=== PATIENT | female | born 1950 | race Caucasian/White ===

== ENCOUNTER 2022-02-24 19:54 | Inpatient (IN) | payer BC, OTHER ==
--- NOTE | 2022-02-23 23:30 | NUR ---
IV RE-INSERTION: Restarted on L. forearm 22G, good blood return. Successful after 2 attempts. Resumed current IVF of NS @ 100 per hour. Will observe for any signs of infiltration. Addendum: 02/27/22 at 0019 by Arielle Altamirano RN Disregard above notes. Incorrect date.
[~2022-02-24] VITALS: Ht 167.6 cm; Wt 78.0 kg
[2022-02-24 20:00] VITALS: BP_SYST 152
[2022-02-24 23:17] LABS: PLATELET COUNT (AUTO) 323 K/uL (130-430); RED BLOOD CELL COUNT(AUTO) 4.66 MIL/uL (4.2-6.2)
[2022-02-24 23:23] LABS: BASOPHILS % (AUTO) 0.2 % (0.0-2.0); EOSINOPHILS # (AUTO) 0.1 K/uL (0.0-0.4); EOSINOPHILS % (AUTO) 0.7 % (0.0-4.0); HEMATOCRIT 40.6 % (36-48); HEMOGLOBIN 14.6 g/dL (12.0-16.0); LYMPHOCYTES # (AUTO) 4.4 K/uL (1.0-5.5); LYMPHOCYTES % (AUTO) 38.4 % (20.5-51.5); MEAN CORPUSCULAR HEMOGLOBIN 31 pg (27-31); MEAN CORPUSCULAR HGB CONC 36 % (32-36); MEAN CORPUSCULAR VOLUME 87 fL (79.0-98.0); MONOCYTES # (AUTO) 0.8 K/uL (0.0-1.0); MONOCYTES % (AUTO) 6.6 % (1.7-9.3); NEUTROPHILS # (AUTO) 6.3 K/uL (1.8-7.7); NEUTROPHILS % (AUTO) 54.1 % (40.0-70.0); WHITE BLOOD COUNT (AUTO) 11.6 K/uL (4.8-10.8)
[2022-02-24 23:28] LABS: ANION GAP 5 (5-15); GLUCOSE 101 mg/dL (70-99); POTASSIUM 3.6 mmol/L (3.5-5.1); UREA NITROGEN, BLOOD 9 mg/dL (8-21)
--- NOTE | 2022-02-24 23:35 | NUR ---
PT TO BED 2, AMBULATES WITH STEADY GAIT. PT DENIES ANY CHEST PAIN, STATES SHE HAS BURNING AND ALSO HAS HX OF GERD. PT STATES SHE WAS TAKING STEROIDS AND HAS BEEN DIZZY. NO S/S OF DISTRESS NOTED. PT PLACED ON C-MONITOR
[2022-02-24 23:36] LABS: ALANINE AMINOTRANSFERASE 40 U/L (12-78); ALBUMIN 3.9 g/dL (3.4-4.8); ASPARTATE AMINOTRANSFERASE 32 U/L (10-37); LIPASE 133 U/L (73-393); TOTAL BILIRUBIN 0.6 mg/dL (0.0-1.0)
[2022-02-24 23:38] LABS: CHLORIDE 84 mmol/L (98-107)
[2022-02-24 23:40] LABS: SODIUM SERUM 119 mmol/L (136-145)
[2022-02-24] MEDS ORDERED: NACL 0.9% 1,000 ML IV ONE (23:45)
[2022-02-24] MEDS ORDERED: MECLIZINE HCL 25 MG TABLET (ANITVERT) PO ONE (23:45)
--- NOTE | 2022-02-25 00:50 | NUR ---
LAB AT BEDSIDE FOR 2ND TROPONIN
--- NOTE | 2022-02-25 01:19 | NUR ---
PT UP AND AMBULATES WITH STEADY GAIT TO RESTROOM.
--- NOTE | 2022-02-25 01:41 | NUR ---
NO CHANGE IN PT STATUS. PT UP AND TALKING ON PHONE. NO S/S OF DISTRESS NOTED. VSS. WILL CONTINUE TO MONITOR.
[2022-02-25] MEDS ORDERED: FEXO180T94 PO (02:35)
[2022-02-25] MEDS ORDERED: LEVO100T9 PO (02:35)
[2022-02-25] MEDS ORDERED: PRAV40TA63 PO (02:35)
[2022-02-25] MEDS ORDERED: LISI10TA29 PO (02:35)
[2022-02-25] MEDS ORDERED: NACL 0.9% 1,000 ML IV ONE (03:00)
--- NOTE | 2022-02-25 04:35 | NUR ---
PATIENT SLEEPING IN BED. WAITING FOR MS BED. VSS. WILL CONTINUE TO MONITOR.
--- NOTE | 2022-02-25 05:47 | NUR ---
PATIENT RESTING IN BED. VSS. WAITNIG FOR MS BED. WILL CONTINUE TO MONITOR.
[2022-02-25] MEDS ORDERED: LORazepam 2 MG/ML VIAL IVP PRN (06:30)
[2022-02-25] MEDS ORDERED: ONDANSETRON HCL 4 MG/2 ML VIAL IVP PRN (06:30)
[2022-02-25] MEDS: NACL 0.9% 1,000 ML IV SCH ×2 (06:37→12:30)
--- NOTE | 2022-02-25 07:17 | NUR ---
gave rprt to julio cesar
--- NOTE | 2022-02-25 07:26 | NUR ---
a/o x 4 vss appears to be in no acute distress noted at this time, xray at bedside at this time.
--- NOTE | 2022-02-25 07:51 | NUR ---
mill laborer at bedside at this time
--- NOTE | 2022-02-25 08:08 | NUR ---
Admit bed requested Patient will be admitted to care of . Admitted to MedSurg unit. Diagnosis Hyponatremia and dizziness Inpatient (Yes or No) yes Observation (Yes or No) no Orientation concerns or request close to nursing station (Yes or No) no Covid Status negative On vent or bipap no Isolation requirements no Needs a sitter no From Home (Yes or if No enter name of facility) home Requires Dialysis (Yes or No) no Med Rec Completed (Yes of No) yes
[2022-02-25] MEDS ORDERED: MECLIZINE HCL 25 MG TABLET (ANITVERT) PO SCH (09:00)
[2022-02-25] MEDS ORDERED: NON-FORMULARY MEDICATION (Fexofenadine Hcl (Allegra Allergy) 180 MG) PO SCH (09:00)
--- NOTE | 2022-02-25 09:27 | NUR ---
CONSULTATION PAGED/CALLED Reason for Consultation: [] LEUKOCYTOSIS Person Who was Notified: [] JULIETTE Consulting Physician: [] DR GAGE Market Relationship Manager Specialty: [] ID Ordering Physician: [] DR ARREOLA
--- NOTE | 2022-02-25 09:29 | NUR ---
CONSULTATION PAGED/CALLED Reason for Consultation: [] DIZZINESS Person Who was Notified: [] DR Jonny TEIXEIRA Consulting Physician: [] DR Jonny TEIXEIRA Shot Polisher And Inspector Specialty: [] NEURO Ordering Physician: [] DR ARREOLA
--- NOTE | 2022-02-25 09:32 | NUR ---
CONSULTATION PAGED/CALLED Reason for Consultation: [] DIZZINESS Person Who was Notified: [] DR LONG Consulting Physician: [] DR LONG Superintendent [employer] Specialty: [] CARDIO Ordering Physician: [] DR ARREOLA
--- NOTE | 2022-02-25 09:35 | NUR ---
CONSULTATION PAGED/CALLED Reason for Consultation: [] HYPONATREMIA Person Who was Notified: [] DR SHARMA Consulting Physician: [] DR SHARMA Lab Aid Specialty: [] NEPHRO Ordering Physician: [] DR ARREOLA
[2022-02-25 09:40] LABS: ANION GAP 8 (5-15); CALCIUM 8.2 mg/dL (8.4-11.0); CHLORIDE 97 mmol/L (98-107); CREATININE 0.69 mg/dL (0.55-1.30); GLUCOSE 95 mg/dL (70-99); SODIUM SERUM 130 mmol/L (136-145); UREA NITROGEN, BLOOD 9 mg/dL (8-21)
[2022-02-25 09:57] LABS: BASOPHILS # (AUTO) 0.3 K/uL (0.0-0.2); BASOPHILS % (AUTO) 3.2 % (0.0-2.0); EOSINOPHILS # (AUTO) 0.1 K/uL (0.0-0.4); EOSINOPHILS % (AUTO) 1.3 % (0.0-4.0); HEMATOCRIT 36.5 % (36-48); HEMOGLOBIN 12.9 g/dL (12.0-16.0); LYMPHOCYTES # (AUTO) 3.7 K/uL (1.0-5.5); LYMPHOCYTES % (AUTO) 40.2 % (20.5-51.5); MEAN CORPUSCULAR HEMOGLOBIN 31 pg (27-31); MEAN CORPUSCULAR HGB CONC 35 % (32-36); MEAN CORPUSCULAR VOLUME 89 fL (79.0-98.0); MONOCYTES # (AUTO) 0.5 K/uL (0.0-1.0); MONOCYTES % (AUTO) 5.7 % (1.7-9.3); NEUTROPHILS # (AUTO) 4.5 K/uL (1.8-7.7); NEUTROPHILS % (AUTO) 49.6 % (40.0-70.0); PLATELET COUNT (AUTO) 285 K/uL (130-430); RED BLOOD CELL COUNT(AUTO) 4.12 MIL/uL (4.2-6.2); RED CELL DISTRIBUTION WIDTH 13.3 % (9.0-15.0); WHITE BLOOD COUNT (AUTO) 9.1 K/uL (4.8-10.8)
--- NOTE | 2022-02-25 10:26 | NUR ---
EVALUATION COMPLETED. PATIENT NEEDS TO USE THE FWW DURING TRANSFERS AND GAIT DUE TO HER DIZZINESS AND UNSTEADY STANDING BALANCE. SHE WILL NEED A FWW FOR HOME USE. PATIENT IS SAFE TO AMBULATE WITH NURSING SUPERVISION. SHE DOES NOT NEED FURTHER PHYSICAL THERAPY.
[2022-02-25] MEDS ORDERED: LEVOTHYROXINE SODIUM 0.1 MG TABLET PO ONE (11:30)
[2022-02-25] MEDS: MECLIZINE HCL 25 MG TABLET (ANITVERT) PO SCH ×3 (12:04→21:31)
[2022-02-25 14:00] VITALS: BP_SYST 132
[2022-02-25] MEDS ORDERED: CLOTRIMAZOLE/BETAMET DIPROP 15 GM TUBE TP ONE (14:30)
[2022-02-25 16:30] VITALS: BP_SYST 141
[2022-02-25] MEDS ORDERED: lisinopriL 20 MG TABLET PO ONE (16:45)
[2022-02-25] MEDS: ACETAMINOPHEN 325 MG TABLET PO PRN (18:44)
--- NOTE | 2022-02-25 19:40 | NUR ---
Dr. Raygoza at bedside, but pt in the bathroom.
--- NOTE | 2022-02-25 19:53 | NUR ---
1100: RECEIVED PATIENT FROM ER. AWAKE, ALERT, ORIENTED X 4 TO NAME, PERSON, PLACE, AND TIME. RESPIRATION EVEN AND UNLABORED NO S/S OF ANY ACUTE DISTRESS NOTED. ABLE TO VERBALIZE NEEDS NO C/O ANY PAIN OR DISCOMFORT NOTED. ABDOMEN SOFT AND NON-DISTENDED, POSITIVE BOWEL SOUND X 4 NO N/V OR DIARRHEA NOTED. SKIN WARM AND DRY INTACT W/O ANY REDNESS OR EDEMA NOTED. WILL CONTINUE TO REASSESS PATIENT PRN. 1910: VS REMAINED STABLE W/O ANY CHANGE IN LOC, ADMINISTERED B/P MED AND TYLENOL, PATIENT C/O HEADACHE, B/P @ 1745 141/76, EFFECTIVE HEADACHE NOW IS RELIEVED. PATIENT TOLERATED PO WELL WITH GOOD APPETITE. REQUESTED FOR MORE ORAL FLUID. PATIENT FINISHED A WHOLE PITCHER OF H2O PLUS 2 BOTTLES OF 12 OZ W/N THE LAST 5 HOURS. RE-EDUCATE PATIENT ON EXCESSIVE ORAL FLUID INTAKE COULD LEAD TO HYPONATREMIA. ENDORSED PATIENT TO PM SHIFT NURSE
[2022-02-25 20:25] VITALS: BP_SYST 129
--- NOTE | 2022-02-25 20:25 | NUR ---
Opening notes Pt AAOx4, VSS, no s/s distress noted. IVF infusing at ordered rate L. hand 22G clear and patent. DC'd non patent IV R. AC catheter tip intact, no active bleed noted. Call light within reach. Bed low, locked, siderails up x2. To monitor.
[2022-02-25] MEDS: SIMVASTATIN 20 MG TABLET PO SCH (21:30)
[2022-02-25] MEDS: CLOTRIMAZOLE/BETAMET DIPROP 15 GM TUBE TP SCH (21:30)
[2022-02-26 00:01] VITALS: BP_SYST 115
[2022-02-26] MEDS: NACL 0.9% 1,000 ML IV SCH ×3 (00:26→21:00)
[2022-02-26] MEDS: LEVOTHYROXINE SODIUM 0.1 MG TABLET PO SCH (06:28)
--- NOTE | 2022-02-26 07:09 | NUR ---
Urine sample collected and sent to lab.
[2022-02-26 07:12] LABS: BASOPHILS % (AUTO) 0.5 % (0.0-2.0); EOSINOPHILS # (AUTO) 0.2 K/uL (0.0-0.4); EOSINOPHILS % (AUTO) 1.7 % (0.0-4.0); HEMATOCRIT 37.2 % (36-48); HEMOGLOBIN 12.7 g/dL (12.0-16.0); LYMPHOCYTES # (AUTO) 5.1 K/uL (1.0-5.5); LYMPHOCYTES % (AUTO) 53.1 % (20.5-51.5); MEAN CORPUSCULAR HEMOGLOBIN 31 pg (27-31); MEAN CORPUSCULAR HGB CONC 34 % (32-36); MEAN CORPUSCULAR VOLUME 90 fL (79.0-98.0); MONOCYTES # (AUTO) 0.7 K/uL (0.0-1.0); MONOCYTES % (AUTO) 7.3 % (1.7-9.3); NEUTROPHILS # (AUTO) 3.6 K/uL (1.8-7.7); NEUTROPHILS % (AUTO) 37.4 % (40.0-70.0); PLATELET COUNT (AUTO) 284 K/uL (130-430); RED BLOOD CELL COUNT(AUTO) 4.13 MIL/uL (4.2-6.2); RED CELL DISTRIBUTION WIDTH 13.6 % (9.0-15.0); WHITE BLOOD COUNT (AUTO) 9.6 K/uL (4.8-10.8)
[2022-02-26 08:00] VITALS: BP_SYST 136
[2022-02-26 08:01] LABS: ALANINE AMINOTRANSFERASE 32 U/L (12-78); ALBUMIN 3.1 g/dL (3.4-4.8); ANION GAP 7 (5-15); ASPARTATE AMINOTRANSFERASE 19 U/L (10-37); CALCIUM 7.6 mg/dL (8.4-11.0); CHLORIDE 101 mmol/L (98-107); CREATININE 0.84 mg/dL (0.55-1.30); GLUCOSE 89 mg/dL (70-99); PHOSPHORUS 3.5 mg/dL (2.7-4.5); POTASSIUM 3.9 mmol/L (3.5-5.1); SODIUM SERUM 135 mmol/L (136-145); TOTAL BILIRUBIN 0.3 mg/dL (0.0-1.0); UREA NITROGEN, BLOOD 10 mg/dL (8-21)
[2022-02-26] MEDS: MECLIZINE HCL 25 MG TABLET (ANITVERT) PO SCH ×3 (09:51→21:16)
[2022-02-26] MEDS: lisinopriL 20 MG TABLET PO SCH (09:51)
[2022-02-26] MEDS: ACETAMINOPHEN 325 MG TABLET PO PRN (09:57)
[2022-02-26 12:00] VITALS: BP_SYST 134
[2022-02-26 16:00] VITALS: BP_SYST 132
[2022-02-26] MEDS: CLOTRIMAZOLE/BETAMET DIPROP 15 GM TUBE TP SCH ×2 (16:08→21:17)
[2022-02-26 20:10] VITALS: BP_SYST 129
--- NOTE | 2022-02-26 21:15 | NUR ---
Opening notes Pt AAOx3, VSS. No s/s distress or sob noted. Pt stated she does not want the Ativan. Pt stated a black lady/ lady gave it to her. Pt reported to this RN and CRN that she fell in the bathroom in the afternoon and she had to lift herself up. Pt stated she did not bump or hit anything. When asked if she let her nurse know she said yes. Educated pt to call nurse before getting out of bed and to use call light. Call light within reach. Bed low, locked, siderails up x2. To monitor.
[2022-02-26] MEDS: SIMVASTATIN 20 MG TABLET PO SCH (21:16)
--- NOTE | 2022-02-26 21:25 | NUR ---
Paged Pageella Mcmanus regarding pt's request for Cheri.
--- NOTE | 2022-02-26 23:30 | NUR ---
IV RE-INSERTION: Restarted on L. forearm 22G, good blood return. Successful after 2 attempts. Resumed current IVF of NS @ 100 per hour. Will observe for any signs of infiltration. Pt tolerated well.
[2022-02-26 23:45] VITALS: BP_SYST 151
--- NOTE | 2022-02-26 23:55 | NUR ---
Pts' daughter called Received call from pt's daughters Jolly [phone]. They request to be notified ahead of time when pt is going to be discharged. Informed them there will be a bilingual patient support caseworker on the case.
--- NOTE | 2022-02-27 01:40 | NUR ---
MD called back Received callback from Dr. Mcmanus and informed him that pt is asking for Cheri 110mg for the morning. Per MD will do that tomorrow.
--- NOTE | 2022-02-27 02:30 | NUR ---
Pt moved to Room 105-B. All belongings with pt.
[2022-02-27] MEDS: NACL 0.9% 1,000 ML IV SCH (06:27)
[2022-02-27] MEDS: LEVOTHYROXINE SODIUM 0.1 MG TABLET PO SCH (06:27)
[2022-02-27 08:00] VITALS: BP_SYST 169
[2022-02-27] MEDS: MECLIZINE HCL 25 MG TABLET (ANITVERT) PO SCH ×3 (08:42→14:01)
[2022-02-27] MEDS: lisinopriL 20 MG TABLET PO SCH (08:43)
[2022-02-27] MEDS: CLOTRIMAZOLE/BETAMET DIPROP 15 GM TUBE TP SCH (08:53)
[2022-02-27] MEDS ORDERED: CLOT15CR5 TP (09:07)
[2022-02-27 10:57] VITALS: BP_SYST 137
[2022-02-27 12:37] VITALS: BP_SYST 142
[2022-02-27 14:05] VITALS: BP_SYST 169
--- NOTE | 2022-02-27 14:58 | NUR ---
D/C Patient Patient given medication reconciliation form and D/C instructions. Exit Care provided. Patient verbalized understanding. MD discussed with patient the results and treatment provided. Ambulatory with steady gait for discharge to home. Patient in stable condition, ID band removed. IV catheter removed, intact and dressing applied, no active bleeding. Rx of given. Patient educated on pain management. All belongings sent with patient.
== END 2022-02-27 14:15 | disposition home or self-care (01) | DRG 103 ==
LOC: SED 19:54 → SMU 02-25 04:12
PROVIDERS: ADMIT Preventive Medicine Preventive Medicine/Occupational Environmental Medicine; ATTEND Preventive Medicine Preventive Medicine/Occupational Environmental Medicine
PROC: 4A10X4Z Monitoring of Central Nervous Electrical Activity, External Approach (ICD-10-PCS; principal; 2022-02-26)
DX: G44.209 Tension-type headache, unspecified, not intractable (principal); E87.1 Hypo-osmolality and hyponatremia; I10 Essential (primary) hypertension; E03.9 Hypothyroidism, unspecified; Z20.822 Contact with and (suspected) exposure to COVID-19; R73.9 Hyperglycemia, unspecified; E78.5 Hyperlipidemia, unspecified; E78.00 Pure hypercholesterolemia, unspecified; D72.829 Elevated white blood cell count, unspecified; Z86.73 Personal history of transient ischemic attack (TIA), and cerebral infarction without residual deficits; Z79.899 Other long term (current) drug therapy; Z88.6 Allergy status to analgesic agent
CPT/HCPCS: 36415; 70450-TC; 71045; 76376; 80048; 80053; 83690; 83735; 84100; 84484; 85025; 87040; 87086; 93005; 93306; 93880; 96360; 96361; 99285; J2060; J7030; J8597